=== PATIENT | male | born 1940 ===

== ENCOUNTER 2017-02-23 08:48 | Day surgery (SDC) | payer MEDICARE ==
[2017-02-23] MEDS ORDERED: Propofol 10 mg/ml Inj (20 ML) ONE ×2 (11:13→11:14)
[2017-02-23] MEDS ORDERED: Lactated Ringer's 500 ML IV SCH (11:15)
[2017-02-23] MEDS ORDERED: Lactated Ringer's 500 ML IV ONE (11:22)
[2017-02-23] MEDS: Lactated Ringer's 500 ML IV ONE ×2 (11:22→11:41)
[2017-02-23] MEDS ORDERED: Lidocaine Hydrochloride 5 ML INJ ONE (11:23)
[2017-02-23 13:05] VITALS: BP 118/71; PULSE 81; RESP 20; TEMP 97.9; O2SAT 99
== END 2017-02-23 13:00 | disposition home or self-care (01) ==
LOC: C.ENDO 08:48
PROVIDERS: ATTEND Internal Medicine Gastroenterology
DX: K64.8 Other hemorrhoids (principal); D12.5 Benign neoplasm of sigmoid colon
CPT/HCPCS: 45388; 82948; 88305; J2704; J7120

== ENCOUNTER 2017-04-20 06:26 | Day surgery (SDC) | payer MEDICARE | END 2017-04-20 09:42 | disposition home or self-care (01) | LOC: C.SDS 06:26 | DX: H25.11 Age-related nuclear cataract, right eye (principal) | CPT/HCPCS: 66984; 82948; J2250; J2405; J3010; J3470; J7120 ==

== ENCOUNTER 2018-09-27 14:46 | Outpatient (CLI) | payer MEDICARE | END 2018-09-27 14:47 | disposition home or self-care (01) | LOC: C.CTH 14:46 | DX: J84.112 Idiopathic pulmonary fibrosis (principal) ==